=== PATIENT | female | born 1975 | race African-American/Black ===

== ENCOUNTER 2017-11-12 15:36 | Emergency (ER) | payer OTHER ==
[~2017-11-12] VITALS: Ht 162.6 cm; Wt 81.7 kg
[~2017-11-12 15:36] MED LIST: AMOXICILLIN 50500 MG PO; CATAPRES PO; PERCOCET 5-3251 EACH PO
[2017-11-12] MEDS ORDERED: PREDNISONE 20 M20 MG PO (17:00)
[2017-11-12] MEDS ORDERED: PROMETHAZINE/C118 ML PO (17:00)
[2017-11-12] MEDS ORDERED: OSELB75 PO (17:00)
== END 2017-11-12 17:22 | disposition home or self-care (01) ==
LOC: ER 15:36
DX: J11.1 Influenza due to unidentified influenza virus with other respiratory manifestations (principal)

== ENCOUNTER 2019-02-24 22:01 | Emergency (ER) | payer OTHER ==
[~2019-02-24] VITALS: Ht 162.6 cm; Wt 94.3 kg
[~2019-02-24 22:01] MED LIST changes: +OSELB75 PO; +PREDNISONE 20 M20 MG PO; +PROMETHAZINE/C118 ML PO
[2019-02-24] MEDS ORDERED: METFORMIN HCL500 MG PO (22:08)
[2019-02-24] MEDS ORDERED: ZESTORETIC 20-1 EAC3 PO (22:08)
[2019-02-24 23:57] LABS: ALBUMIN 3.9 g/dL (3.4-5.0); CALCIUM 9.3 mg/dL (8.5-10.1); MAGNESIUM 2.1 mg/dL (1.8-2.4); PHOSPHORUS 3.9 mg/dL (2.5-4.9); TOTAL BILIRUBIN 0.2 mg/dL (<0.1-1.0); TOTAL PROTEIN 7.1 g/dL (6.4-8.2)
[2019-02-25] MEDS ORDERED: POTASSIUM20 PO (00:14)
[2019-02-25] MEDS ORDERED: NAPROSYN500 MG PO (00:46)
[2019-02-25] MEDS ORDERED: NORFLEX100 MG PO (00:46)
[2019-02-25 01:08] VITALS: BP 140/71
== END 2019-02-25 01:10 | disposition home or self-care (01) ==
LOC: ER 22:01
PROVIDERS: Emergency Medicine
DX: R25.2 Cramp and spasm (principal); E87.6 Hypokalemia; I10 Essential (primary) hypertension; J45.909 Unspecified asthma, uncomplicated; Z90.711 Acquired absence of uterus with remaining cervical stump